=== PATIENT | male | born 1990 | race Caucasian/White ===

== ENCOUNTER 2019-04-24 22:24 | Emergency (ER) | payer OTHER ==
[~2019-04-24] VITALS: Ht 177.8 cm; Wt 90.7 kg
[2019-04-24 22:55] LABS: ABSOLUTE BASOPHILS 0.1 thou/uL (0.0-0.2); ABSOLUTE EOSINOPHILS 0.8 thou/uL (0.0-0.7); ABSOLUTE LYMPHOCYTES 3.2 thou/uL (0.8-5.3); ABSOLUTE MONOCYTES 0.9 thou/uL (0.0-1.2); BASOPHILS 0.8 %; EOSINOPHILS 6.9 %; HEMATOCRIT 44.4 % (42.0-52.0); HEMOGLOBIN 15.7 gm/dL (14.0-18.0); LYMPHOCYTES 28.9 %; MCH 32.3 pg (26.0-34.0); MCHC 35.2 g/dL (28.0-37.0); MCV 91.7 fL (80.0-100.0); MONOCYTES 8.5 %; MPV 8.9 fl. (7.2-11.1); NUCLEATED RBCS 0 /100WBC; PLATELET COUNT* 171 thou/uL (150-400); POLYS 54.9 %; RBC 4.85 mil/uL (4.50-6.00); RDW-CV 12.6 % (10.5-14.5)
[2019-04-24 23:10] LABS: CALCIUM 9.1 mg/dL (8.5-10.1); CREATININE 0.9 mg/dL (0.6-1.3); POTASSIUM 4.1 mmol/L (3.5-5.1)
[2019-04-24 23:15] LABS: ALBUMIN 3.8 g/dL (3.4-5.0); TOTAL BILIRUBIN 0.3 mg/dL (<0.1-1.0)
[2019-04-24 23:29] LABS: URINE BILIRUBIN NEGATIVE (Negative); URINE BLOOD NEGATIVE (Negative); URINE CLARITY CLEAR; URINE COLOR YELLOW; URINE GLUCOSE-RANDOM NEGATIVE (Negative); URINE KETONES NEGATIVE (Negative); URINE LEUKOCYTES-REFLEX NEGATIVE (Negative); URINE NITRITE-REFLEX NEGATIVE (Negative); URINE PROTEIN NEGATIVE (Negative); URINE SPECIFIC GRAVITY <= 1.005 (1.005-1.030); URINE UROBILINOGEN 0.2 E.U./dl (0.2-1.0)
[2019-04-24 23:33] VITALS: BP 141/89
== END 2019-04-24 23:30 | disposition home or self-care (01) ==
LOC: M.ERS 22:24
PROVIDERS: Personal Emergency Response Attendant
DX: R56.9 Unspecified convulsions (principal)